=== PATIENT | male | born 1940 | race Caucasian/White ===

== ENCOUNTER 2021-09-23 01:45 | Inpatient (IN) | payer MEDICARE, OTHER ==
[~2021-09-23] VITALS: Ht 175.3 cm; Wt 76.2 kg
--- NOTE | 2021-09-23 02:55 | NUR ---
AFTER BEING TRIAGED, PATIENT WAS PLACED IN HALLWAY ON ROR [facility] TO WAIT FOR ROOM OPENING.
[2021-09-23 03:03] LABS: HEMATOCRIT 33.1 % (36.7-47.1); MEAN CORPUSCULAR VOLUME 90.4 fL (73.0-96.2); PLATELET COUNT (AUTO) 142 K/uL (152-348)
[2021-09-23] MEDS ORDERED: RIVA10TA PO (03:23)
[2021-09-23] MEDS ORDERED: AMLO-212 PO (03:23)
[2021-09-23] MEDS ORDERED: DONE10TA44 PO ×2 (03:23→17:14)
[2021-09-23] MEDS ORDERED: MAGN400O6 PO (03:23)
[2021-09-23] MEDS ORDERED: TAMS-3 PO (03:23)
[2021-09-23] MEDS ORDERED: ACET-2154 PO (03:23)
[2021-09-23] MEDS ORDERED: MEMA10TA56 PO (03:23)
[2021-09-23] MEDS ORDERED: DOCU100C36 PO (03:23)
[2021-09-23] MEDS ORDERED: SIMV-46 PO (03:23)
[2021-09-23] MEDS ORDERED: MULT-1188 PO (03:23)
[2021-09-23] MEDS ORDERED: DULO60CA45 PO (03:23)
[2021-09-23] MEDS ORDERED: METO-357 PO (03:23)
[2021-09-23] MEDS ORDERED: OXYB10TA30 PO (03:23)
[2021-09-23] MEDS ORDERED: CRAN425C6 PO (03:23)
[2021-09-23] MEDS ORDERED: FINA5TAB11 PO (03:23)
[2021-09-23 03:25] LABS: THYROID STIMULATING HORMONE 2.743 mIU/mL (0.358-3.740)
[2021-09-23 03:31] LABS: CARBON DIOXIDE 24 mmol/L (21-32); CHLORIDE 104 mmol/L (98-107); CREATININE 1.5 mg/dL (0.6-1.3); GLUCOSE 95 mg/dL (74-106); POTASSIUM 3.8 mmol/L (3.5-5.1); UREA NITROGEN, BLOOD 30 mg/dL (7-18)
[2021-09-23 03:33] LABS: ETHANOL < 3 MG/DL (0-0)
[2021-09-23 03:37] LABS: ACETAMINOPHEN < 2.0 ug/mL (10-30); ALANINE AMINOTRANSFERASE 27 U/L (16-63); ALKALINE PHOSPHATASE 63 U/L (50-136); ASPARTATE AMINOTRANSFERASE 57 U/L (15-37); BILIRUBIN,DIRECT 0.4 mg/dL (0.0-0.2); BILIRUBIN,TOTAL 1.5 mg/dL (0.2-1.0); CREATINE KINASE, TOTAL 844 U/L (39-308); TOTAL PROTEIN, SERUM 6.1 g/dL (6.4-8.2)
--- NOTE | 2021-09-23 04:22 | NUR ---
MEDICALLY CLEARED BY DR CASTELLANO.
[2021-09-23] MEDS ORDERED: MAGNESIUM HYDROXIDE 30 ML LIQUID UDC PO PRN (04:45)
[2021-09-23] MEDS ORDERED: TEMAZEPAM 7.5 MG CAPSULE PO PRN (04:45)
[2021-09-23] MEDS ORDERED: MAG HYDROX/AL HYDROX/SIMETH 30 ML LIQUID UDC PO PRN (04:45)
--- NOTE | 2021-09-23 04:45 | NUR ---
TRANSPORTED TO [facility] VIA [facility] WITH NO DISTRESS NOTED.
[2021-09-23 05:37] VITALS: BP 149/66
[2021-09-23] MEDS: BLOOD SUGAR DIAGNOSTIC 1 EACH STRIP VI ONE ×2 (05:42→06:42)
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
--- NOTE | 2021-09-23 06:58 | NUR ---
Pt is calmer, now. Blood sugar check done.
[2021-09-23] MEDS: LORAZEPAM 0.5 MG TABLET PO PRN ×2 (07:40→12:36)
--- NOTE | 2021-09-23 10:18 | NUR ---
MARISOL Initial Discharge Plan: Pt's current resident is [facility] [address], [place] [address] ([phone]). Per Cristel figueroa at [facility], pt is not accepted back upon discharge. MARISOL will work with pt, family and MD to ensure a safe and proper discharge plan for the pt.
--- NOTE | 2021-09-23 10:21 | NUR ---
SW Admit Source: Pt's current resident is [facility] [address], [place] [address] ([phone]). Per 5150 hold, clinician was contacted by Intake to evaluate SI with aggressive behavior at [facility]. Per Cristel figueroa at [facility], pt is not accepted back upon discharge. SW will work with pt, family and MD to ensure a safe and proper discharge plan for the pt.
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
--- NOTE | 2021-09-23 10:59 | NUR ---
GPS: Nursing Notes: Destructive Behavior to Others: Patient is awake and responding to his name, gets easily irritable when redirected, poor anger management, resistant with nursing care, unkempt appearance, disorganized, confused, forgetful, impaired judgment, loud and pressured speech at times, unable to formulate a viable plan for self care, continent of urine, redirected and reoriented during shift, continue to monitor for safety, continue with treatment plan.
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
[2021-09-23] MEDS: busPIRone 5 MG TABLET PO SCH ×2 (13:16→16:22)
[2021-09-23 15:41] VITALS: BP 125/59
[2021-09-23 16:01] LABS: HEMATOCRIT 34.7 % (36.7-47.1); MEAN CORPUSCULAR VOLUME 91.3 fL (73.0-96.2); PLATELET COUNT (AUTO) 154 K/uL (152-348)
[2021-09-23 16:29] LABS: BILIRUBIN,TOTAL 1.3 mg/dL (0.2-1.0); CREATININE 1.3 mg/dL (0.6-1.3); POTASSIUM 4.4 mmol/L (3.5-5.1); TOTAL PROTEIN, SERUM 6.2 g/dL (6.4-8.2)
[2021-09-23] MEDS ORDERED: MEMA10TA PO (17:14)
[2021-09-23 19:44] VITALS: BP 110/67
--- NOTE | 2021-09-24 03:35 | NUR ---
Received to care, isolating in his room, but pleasant and cooperative, upon approach. No aggressive behavior noted. PRN Restoril was given at 2045, along with a snack, and he went to sleep, soon afterwards. He has been sleeping well since then, except for a few trips to the bathroom. As of now, he remains asleep. No distress noted. Will continue to monitor closely.
[2021-09-24 07:30] VITALS: BP 148/57
[2021-09-24 07:52] LABS: CREATININE 1.3 mg/dL (0.6-1.3); POTASSIUM 3.9 mmol/L (3.5-5.1)
[2021-09-24] MEDS: OXYBUTYNIN XL 5 MG TABSR PO SCH (09:26)
[2021-09-24] MEDS: FINASTERIDE 5 MG TABLET PO SCH (09:26)
[2021-09-24] MEDS: DULOXETINE 20 MG CAPSULE.DR PO SCH (09:26)
[2021-09-24] MEDS: MULTIVITAMINS,THERAPEUTIC TABLET PO SCH (09:27)
[2021-09-24] MEDS: DOCUSATE SODIUM 100 MG CAPSULE PO SCH (09:27)
[2021-09-24] MEDS: busPIRone 5 MG TABLET PO SCH ×3 (09:27→17:54)
[2021-09-24] MEDS: AMLODIPINE 5 MG TABLET PO SCH (09:28)
[2021-09-24] MEDS: METOPROLOL SUCCINATE XL 50 MG TAB.SR.24H PO SCH (09:29)
[2021-09-24 16:00] VITALS: BP 128/60
--- NOTE | 2021-09-24 16:35 | NUR ---
Received patient sleeping in his room. A/O X 2 - 3 to person, place. Pt. affect is withdrawn, depressed, quiet, calm. Compliant with medications. Ambulates with walker. Self care. Continent. Emotional support provided. Fall and safety precautions implemented.
[2021-09-24] MEDS: RIVAROXABAN 15 MG TABLET PO SCH (17:55)
[2021-09-24 20:00] VITALS: BP 131/55
[2021-09-24] MEDS ORDERED: RIVAROXABAN 10 MG TABLET PO SCH ×2 (21:00)
[2021-09-24] MEDS ORDERED: ZOLPIDEM 5 MG TABLET PO ONE (21:00)
[2021-09-24] MEDS: SIMVASTATIN 20 MG TABLET PO SCH (21:55)
[2021-09-24] MEDS: TAMSULOSIN HCL 0.4 MG CAP.SR.24H PO SCH (21:55)
--- NOTE | 2021-09-25 07:16 | NUR ---
GPS/NSG Luisien wasted patient was asleep.
[2021-09-25 07:30] VITALS: BP 126/65
[2021-09-25] MEDS: OXYBUTYNIN XL 5 MG TABSR PO SCH (08:27)
[2021-09-25] MEDS: DULOXETINE 20 MG CAPSULE.DR PO SCH (08:27)
[2021-09-25] MEDS: DOCUSATE SODIUM 100 MG CAPSULE PO SCH (08:28)
[2021-09-25] MEDS: busPIRone 5 MG TABLET PO SCH ×3 (08:28→17:09)
[2021-09-25] MEDS: MULTIVITAMINS,THERAPEUTIC TABLET PO SCH (08:28)
[2021-09-25] MEDS: FINASTERIDE 5 MG TABLET PO SCH (08:29)
[2021-09-25] MEDS: AMLODIPINE 5 MG TABLET PO SCH (08:30)
[2021-09-25] MEDS: METOPROLOL SUCCINATE XL 50 MG TAB.SR.24H PO SCH (08:30)
--- NOTE | 2021-09-25 15:56 | NUR ---
Received patient sleeping in his room. A/O X 2 to person, place. Pt. is calm, cooperative, isolative, withdrawn. Compliant with medications. Ambulates with walker, unsteady gait. Requires minimal assistance with ADL. Denies SI/HI AH/VH. Active listening provided. Fall and safety precautions implemented.
[2021-09-25 16:00] VITALS: BP 121/45
[2021-09-25] MEDS: RIVAROXABAN 15 MG TABLET PO SCH (17:59)
[2021-09-25 20:00] VITALS: BP 162/80
[2021-09-25] MEDS: SIMVASTATIN 20 MG TABLET PO SCH (20:38)
[2021-09-25] MEDS: TAMSULOSIN HCL 0.4 MG CAP.SR.24H PO SCH (20:38)
[2021-09-25] MEDS: QUETIAPINE FUMARATE 25 MG TABLET PO SCH ×2 (20:38→21:07)
[2021-09-25] MEDS: ZOLPIDEM 5 MG TABLET PO PRN (23:18)
[2021-09-25 23:33] LABS: *BILIRUBIN,URIN NEGATIVE (NEGATIVE); *BLOOD, URINE 2+ (NEGATIVE); *CLARITY,URINE TURBID (CLEAR); *COLOR,URINE YELLOW (YELLOW); *KETONES,URINE NEGATIVE (NEGATIVE); *UROBILINOGEN,URINE 0.2 E.U./dl (NORMAL); LEUKOCYTE ESTERASE ,URINE 3+ (NEGATIVE); NITRITE, URINE NEGATIVE (NEGATIVE); UGLUCOSE NEGATIVE (NEGATIVE)
[2021-09-25 23:44] LABS: BACTERIA,URINE FEW /HPF (NONE SEEN); RBC,URINE 20-50 /HPF (0-3); SQUAMOUS EPITHELIAL CELL,UR FEW /HPF (NONE SEEN); WBC,URINE TNTC /HPF (0-3)
--- NOTE | 2021-09-26 04:36 | NUR ---
GPS NOTE: Received patient at the start of the shift, confused and ambulating without using his walker.As the night proceeded it is noted that the patient was up and out of bed literally every 30 minutes trying to void. Each time the output was very minimal. 20 to 50 cc at a time. A urine sample was sent to the lab and indicated a urine infection. The patient had a West catheter at the previous hospital as well as the SNF he resides in. The catheter was removed the same day as the patient was admitted to this Mental Health Unit. This patient is combative at night and needs frequent reorientation, reassurance and assist to the bathroom every 15 to 30 minutes. Plan to notify the Doctor in the AM and bladder scan the patient prior to that .Safety Stratiges in place .
--- NOTE | 2021-09-26 05:45 | NUR ---
Bladder scan was used and large amount of urine shown in the bladder. Dr. Edouard notified and order receive to straight cath patient. This travel writer did in and out catheter. Patient tolerated the procedure well. Total urine output was 550 ml. Continuing to monitor patient for retention. Doctor was made aware of the UA results.
[2021-09-26 07:30] VITALS: BP 137/52
[2021-09-26] MEDS: FINASTERIDE 5 MG TABLET PO SCH (08:24)
[2021-09-26] MEDS: DOCUSATE SODIUM 100 MG CAPSULE PO SCH (08:24)
[2021-09-26] MEDS: MULTIVITAMINS,THERAPEUTIC TABLET PO SCH (08:24)
[2021-09-26] MEDS: AMLODIPINE 5 MG TABLET PO SCH (08:24)
[2021-09-26] MEDS: busPIRone 5 MG TABLET PO SCH ×3 (08:24→16:20)
[2021-09-26] MEDS: OXYBUTYNIN XL 5 MG TABSR PO SCH (08:24)
[2021-09-26] MEDS: METOPROLOL SUCCINATE XL 50 MG TAB.SR.24H PO SCH (08:25)
[2021-09-26] MEDS ORDERED: CEphaleXIN 500 MG CAPSULE PO ONE (15:27)
[2021-09-26 16:44] VITALS: BP 131/81
[2021-09-26] MEDS: RIVAROXABAN 15 MG TABLET PO SCH (17:00)
[2021-09-26] MEDS: CEphaleXIN 500 MG CAPSULE PO SCH (20:13)
[2021-09-26] MEDS: PHENAZOPYRIDINE HCL 100 MG TABLET PO SCH (20:13)
[2021-09-26] MEDS: TAMSULOSIN HCL 0.4 MG CAP.SR.24H PO SCH (20:14)
[2021-09-26] MEDS: QUETIAPINE FUMARATE 25 MG TABLET PO SCH (20:14)
[2021-09-26] MEDS: SIMVASTATIN 20 MG TABLET PO SCH (20:15)
[2021-09-26 20:42] VITALS: BP 112/46
[2021-09-26] MEDS: ACETAMINOPHEN 325 MG TABLET PO PRN (23:27)
[2021-09-26] MEDS: ZOLPIDEM 5 MG TABLET PO PRN (23:28)
[2021-09-27 07:28] VITALS: BP 109/44
[2021-09-27] MEDS: MULTIVITAMINS,THERAPEUTIC TABLET PO SCH (08:12)
[2021-09-27] MEDS: busPIRone 5 MG TABLET PO SCH ×3 (08:12→16:02)
[2021-09-27] MEDS: CEphaleXIN 500 MG CAPSULE PO SCH ×2 (08:12→20:31)
[2021-09-27] MEDS: DOCUSATE SODIUM 100 MG CAPSULE PO SCH (08:12)
[2021-09-27] MEDS: OXYBUTYNIN XL 5 MG TABSR PO SCH (08:12)
[2021-09-27] MEDS: FINASTERIDE 5 MG TABLET PO SCH (08:12)
[2021-09-27] MEDS: PHENAZOPYRIDINE HCL 100 MG TABLET PO SCH ×2 (08:12→20:31)
[2021-09-27] MEDS: METOPROLOL SUCCINATE XL 50 MG TAB.SR.24H PO SCH (08:13)
[2021-09-27] MEDS: AMLODIPINE 5 MG TABLET PO SCH (08:13)
[2021-09-27 16:43] VITALS: BP 125/62
[2021-09-27] MEDS: RIVAROXABAN 15 MG TABLET PO SCH (17:09)
[2021-09-27 20:00] VITALS: BP 125/70
[2021-09-27] MEDS: ATORVASTATIN 10 MG TABLET PO SCH (20:30)
[2021-09-27] MEDS: QUETIAPINE FUMARATE 25 MG TABLET PO SCH (20:30)
[2021-09-27] MEDS: TAMSULOSIN HCL 0.4 MG CAP.SR.24H PO SCH (20:31)
[2021-09-28 07:30] VITALS: BP 150/82
[2021-09-28] MEDS: OXYBUTYNIN XL 5 MG TABSR PO SCH (08:03)
[2021-09-28] MEDS: DOCUSATE SODIUM 100 MG CAPSULE PO SCH (08:03)
[2021-09-28] MEDS: busPIRone 5 MG TABLET PO SCH ×3 (08:03→16:27)
[2021-09-28] MEDS: PHENAZOPYRIDINE HCL 100 MG TABLET PO SCH (08:03)
[2021-09-28] MEDS: CEphaleXIN 500 MG CAPSULE PO SCH ×2 (08:03→20:22)
[2021-09-28] MEDS: FINASTERIDE 5 MG TABLET PO SCH (08:03)
[2021-09-28] MEDS: MULTIVITAMINS,THERAPEUTIC TABLET PO SCH (08:03)
[2021-09-28] MEDS: METOPROLOL SUCCINATE XL 50 MG TAB.SR.24H PO SCH (08:08)
[2021-09-28] MEDS: AMLODIPINE 5 MG TABLET PO SCH (08:08)
[2021-09-28 08:29] LABS: HEMATOCRIT 34.6 % (36.7-47.1); MEAN CORPUSCULAR HEMOGLOBIN 30.9 uug (23.8-33.4); MEAN CORPUSCULAR VOLUME 92.2 fL (73.0-96.2); PLATELET COUNT (AUTO) 185 K/uL (152-348)
[2021-09-28 08:41] LABS: ALANINE AMINOTRANSFERASE 21 U/L (16-63); ALKALINE PHOSPHATASE 62 U/L (50-136); ASPARTATE AMINOTRANSFERASE 19 U/L (15-37); CARBON DIOXIDE 27 mmol/L (21-32); CHLORIDE 104 mmol/L (98-107); CREATINE KINASE, TOTAL 46 U/L (39-308); CREATININE 1.4 mg/dL (0.6-1.3); GLUCOSE 95 mg/dL (74-106); MAGNESIUM 1.9 mg/dL (1.8-2.4); PHOSPHOROUS 2.7 mg/dL (2.5-4.9); POTASSIUM 4.3 mmol/L (3.5-5.1); TOTAL PROTEIN, SERUM 5.9 g/dL (6.4-8.2); UREA NITROGEN, BLOOD 26 mg/dL (7-18)
[2021-09-28 16:00] VITALS: BP 121/56
[2021-09-28] MEDS: RIVAROXABAN 15 MG TABLET PO SCH (18:12)
[2021-09-28 20:00] VITALS: BP 137/61
[2021-09-28] MEDS: ACETAMINOPHEN 325 MG TABLET PO PRN (20:21)
[2021-09-28] MEDS: QUETIAPINE FUMARATE 25 MG TABLET PO SCH (20:21)
[2021-09-28] MEDS: ATORVASTATIN 10 MG TABLET PO SCH (20:22)
[2021-09-28] MEDS: DONEPEZIL 5 MG TABLET PO SCH (20:22)
[2021-09-28] MEDS: TAMSULOSIN HCL 0.4 MG CAP.SR.24H PO SCH (20:22)
[2021-09-28] MEDS: ZOLPIDEM 5 MG TABLET PO PRN (22:33)
[2021-09-29 07:37] VITALS: BP 96/52
[2021-09-29] MEDS: busPIRone 5 MG TABLET PO SCH ×3 (08:59→17:00)
[2021-09-29] MEDS: DOCUSATE SODIUM 100 MG CAPSULE PO SCH (09:00)
[2021-09-29] MEDS: CEphaleXIN 500 MG CAPSULE PO SCH ×2 (09:00→20:13)
[2021-09-29] MEDS: OXYBUTYNIN XL 5 MG TABSR PO SCH (09:00)
[2021-09-29] MEDS: METOPROLOL SUCCINATE XL 50 MG TAB.SR.24H PO SCH (09:00)
[2021-09-29] MEDS: AMLODIPINE 5 MG TABLET PO SCH (09:00)
[2021-09-29] MEDS: FINASTERIDE 5 MG TABLET PO SCH (09:00)
[2021-09-29] MEDS: MULTIVITAMINS,THERAPEUTIC TABLET PO SCH (09:00)
--- NOTE | 2021-09-29 09:09 | NUR ---
Patient BP is 96/52, Norvasc 5 mg and Metoprolol 50 mg not given.
--- NOTE | 2021-09-29 15:04 | NUR ---
Received patient sleeping in his room. Pt. is calm, cooperative, appropriate, withdrawn, depressed, isolative most of the time. Compliant with medications. Ambulates with walker. Self care. Emotional support provided. Fall and safety precautions implemented.
[2021-09-29 16:30] VITALS: BP 105/46
[2021-09-29] MEDS: RIVAROXABAN 15 MG TABLET PO SCH (17:05)
[2021-09-29 20:00] VITALS: BP 130/67
[2021-09-29] MEDS: TAMSULOSIN HCL 0.4 MG CAP.SR.24H PO SCH (20:13)
[2021-09-29] MEDS: DONEPEZIL 5 MG TABLET PO SCH (20:13)
[2021-09-29] MEDS: QUETIAPINE FUMARATE 25 MG TABLET PO SCH (20:13)
[2021-09-29] MEDS: TRAZODONE 50 MG TABLET PO SCH (20:13)
[2021-09-29] MEDS: ATORVASTATIN 10 MG TABLET PO SCH (20:13)
[2021-09-30 08:00] VITALS: BP 108/78
[2021-09-30] MEDS: CEphaleXIN 500 MG CAPSULE PO SCH ×2 (08:01→22:40)
[2021-09-30] MEDS: DOCUSATE SODIUM 100 MG CAPSULE PO SCH (08:01)
[2021-09-30] MEDS: FINASTERIDE 5 MG TABLET PO SCH (08:01)
[2021-09-30] MEDS: AMLODIPINE 5 MG TABLET PO SCH (08:03)
[2021-09-30] MEDS: METOPROLOL SUCCINATE XL 50 MG TAB.SR.24H PO SCH (08:04)
[2021-09-30] MEDS: MULTIVITAMINS,THERAPEUTIC TABLET PO SCH (08:05)
[2021-09-30] MEDS: OXYBUTYNIN XL 5 MG TABSR PO SCH (08:05)
[2021-09-30] MEDS: busPIRone 5 MG TABLET PO SCH ×3 (08:05→17:21)
[2021-09-30 08:13] LABS: ALANINE AMINOTRANSFERASE 17 U/L (16-63); ALKALINE PHOSPHATASE 55 U/L (50-136); ASPARTATE AMINOTRANSFERASE 14 U/L (15-37); BILIRUBIN,TOTAL 0.7 mg/dL (0.2-1.0); CARBON DIOXIDE 26 mmol/L (21-32); CHLORIDE 106 mmol/L (98-107); CREATININE 1.4 mg/dL (0.6-1.3); GLUCOSE 96 mg/dL (74-106); POTASSIUM 4.1 mmol/L (3.5-5.1); TOTAL PROTEIN, SERUM 5.5 g/dL (6.4-8.2); UREA NITROGEN, BLOOD 33 mg/dL (7-18)
--- NOTE | 2021-09-30 08:40 | NUR ---
GPS: PT WAS NOT GIVEN METOPROLOL AND AMLODIPINE, PT WITH DECREASED BLOOD PRESSURE. PT COMPLIANT WITH MEDS AND CARE. DENIES ANY PAIN OR DISCOMFORT.
--- NOTE | 2021-09-30 10:42 | NUR ---
SW Contact Note: Pt received a voicemail from Bret ([phone]) from the [place] office to discuss pt's current status and SW returned the call and left a voicemail for a call back.
[2021-09-30 17:05] VITALS: BP 115/81
[2021-09-30] MEDS: RIVAROXABAN 15 MG TABLET PO SCH (17:22)
[2021-09-30 20:07] VITALS: BP 104/50
[2021-09-30] MEDS: TRAZODONE 50 MG TABLET PO SCH (22:40)
[2021-09-30] MEDS: QUETIAPINE FUMARATE 25 MG TABLET PO SCH (22:41)
[2021-09-30] MEDS: ATORVASTATIN 10 MG TABLET PO SCH (22:41)
[2021-09-30] MEDS: DONEPEZIL 5 MG TABLET PO SCH (22:41)
[2021-09-30] MEDS: TAMSULOSIN HCL 0.4 MG CAP.SR.24H PO SCH (22:41)
[2021-10-01 07:30] VITALS: BP 101/47
[2021-10-01] MEDS: OXYBUTYNIN XL 5 MG TABSR PO SCH (08:34)
[2021-10-01] MEDS: MULTIVITAMINS,THERAPEUTIC TABLET PO SCH (08:34)
[2021-10-01] MEDS: busPIRone 5 MG TABLET PO SCH ×3 (08:34→17:08)
[2021-10-01] MEDS: CEphaleXIN 500 MG CAPSULE PO SCH ×2 (08:34→21:51)
[2021-10-01] MEDS: AMLODIPINE 5 MG TABLET PO SCH (08:35)
[2021-10-01] MEDS: METOPROLOL SUCCINATE XL 50 MG TAB.SR.24H PO SCH (08:35)
[2021-10-01] MEDS: FINASTERIDE 5 MG TABLET PO SCH (08:36)
[2021-10-01] MEDS: DOCUSATE SODIUM 100 MG CAPSULE PO SCH (08:36)
--- NOTE | 2021-10-01 09:13 | NUR ---
Social Work Coordination of Care: Personalized Living Assistant faxed patient's referral packet including: History and Physical, Consultation, Progress Notes, Medication List and Labs to the following facilities for review and possible usp placement: [facility] [phone] [address] [place] [address] and spoke with Janeen at the facility.
--- NOTE | 2021-10-01 09:32 | NUR ---
GPS: PT ALERT AND VERBALLY RESPONSIVE. PT ISOLATIVE, IN ROOM. ENCOURAGED TO PARTICIPATE WITH GFROUP THERAPY. PT NOTED WITH RIGHT HAND EDEMA +3. ENCOURAGED PT TO ELEVATE HIS HAND ABOVE HEART LEVEL. WILL NOTIFY MD FOR EVALUATION AND WOUND NURSE ON RIGHT HAND OPEN WOUND. PT FEELS LITTLE DISCOMFORT ON THE SITE.
--- NOTE | 2021-10-01 11:36 | NUR ---
GPS: DR GUERRA CAME TO SEE PT WITH RIGHT HAND SWOLLEN. MD ORDERED DUPLEX DOPPLER ON RIGHT HAND. PER PT, A SURGERY WAS DONE TO HIS RIGHT HAND. PT MADE AWARE.
--- NOTE | 2021-10-01 14:14 | NUR ---
GPS: ULTRASOUND OF UPPER EXTREMITY VENOUS IMPRESSION IS NO SONOGRAPHIC EVIDENCE FOR VENOUS THROMBOSIS. PT MADE AWARE. WILL ENCOURAGE PT TO ELEVATE SITE ABOVE HEART LEVEL.
[2021-10-01 16:00] VITALS: BP 113/54
[2021-10-01] MEDS: RIVAROXABAN 15 MG TABLET PO SCH (17:30)
--- NOTE | 2021-10-01 17:52 | NUR ---
GPS: PT HAD A NAP THIS AFTERNOON. WENT TO NURSES STATION STATING " DID I MISS BREAKFAST?" RE-ORIENTED TO TIME. PT ISOLATIVE, WITHDRAWN. ANSWERS BACK APPROPRIATELY. DENIES ANY PAIN OR DISCOMFORT AT THIS TIME. PT SEEN BY CHARLIE AND DR CASTELLANOS. COMPLIANT WITH MEDS AND COOPERATIVE WITH CARE. WILL WAIT FOR WOUND NURSE CONSULT.
[2021-10-01 20:00] VITALS: BP 135/65
[2021-10-01] MEDS: TAMSULOSIN HCL 0.4 MG CAP.SR.24H PO SCH (21:51)
[2021-10-01] MEDS: TRAZODONE 50 MG TABLET PO SCH (21:51)
[2021-10-01] MEDS: DONEPEZIL 5 MG TABLET PO SCH (21:51)
[2021-10-01] MEDS: QUETIAPINE FUMARATE 25 MG TABLET PO SCH (21:51)
[2021-10-01] MEDS: ATORVASTATIN 10 MG TABLET PO SCH (21:52)
--- NOTE | 2021-10-02 04:23 | NUR ---
MARISOL Conservator Contact Update: MARISOL contacted [facility] office and spoke with pt's conservator Bret ([phone]) and notified Bret that pt will be discharging to [facility] on 10/03/21 due to [facility] ([phone]) denying their acceptance for the pt. Bret is aware and agreeable for the discharge plan.
[2021-10-02 08:05] VITALS: BP 128/69
[2021-10-02] MEDS: MULTIVITAMINS,THERAPEUTIC TABLET PO SCH (08:36)
[2021-10-02] MEDS: FINASTERIDE 5 MG TABLET PO SCH (08:36)
[2021-10-02] MEDS: OXYBUTYNIN XL 5 MG TABSR PO SCH (08:36)
[2021-10-02] MEDS: METOPROLOL SUCCINATE XL 50 MG TAB.SR.24H PO SCH (08:37)
[2021-10-02] MEDS: busPIRone 5 MG TABLET PO SCH ×3 (08:37→16:58)
[2021-10-02] MEDS: AMLODIPINE 5 MG TABLET PO SCH (08:37)
[2021-10-02] MEDS: CEphaleXIN 500 MG CAPSULE PO SCH (08:38)
[2021-10-02] MEDS: DOCUSATE SODIUM 100 MG CAPSULE PO SCH (08:38)
--- NOTE | 2021-10-02 09:16 | NUR ---
MARISOL Conservator Contact: MARISOL contacted [facility] office and spoke with pt's probate conservator, Bret ([phone]) and notified him with pt's discharge details on Friday, October 02, 2020 to [facility] ([phone]). Bret is aware and agreeable with the pt's discharge plan.
--- NOTE | 2021-10-02 09:35 | NUR ---
GPS: PT SEEN BY DR MAYELIN TRIANA RE: SWOLLEN RIGHT UPPER EXTREMITY. UPON ASSESSMENT, PT ENABLE TO MOVE THE DIGITS WITH NO PAIN OR DISCOMFORT. NO ORDER GIVEN AT THIS TIME. WILL WAIT FOR THE WOUND CONSULT NURSE TO ASSESS ON THE OPEN WOUND ON RIGHT HAND.
[2021-10-02] MEDS: RIVAROXABAN 15 MG TABLET PO SCH (17:19)
--- NOTE | 2021-10-02 18:29 | NUR ---
Gps/Showroom Sales Assistant- Stayed in bed most of the time, encouraged attending his group therapy, disorganized, needed redirections.Right arm swollen seen by Daniel Fair DNP waiting to be see by Wound Care Nurse. Some scabs to his hands also noted..
[2021-10-02 19:41] VITALS: BP 118/62
[2021-10-02] MEDS: ATORVASTATIN 10 MG TABLET PO SCH (20:01)
[2021-10-02] MEDS: QUETIAPINE FUMARATE 25 MG TABLET PO SCH (20:01)
[2021-10-02] MEDS: TRAZODONE 50 MG TABLET PO SCH (20:01)
[2021-10-02] MEDS: DONEPEZIL 5 MG TABLET PO SCH (20:01)
[2021-10-02] MEDS: TAMSULOSIN HCL 0.4 MG CAP.SR.24H PO SCH (20:01)
[2021-10-03] MEDS: ZOLPIDEM 5 MG TABLET PO PRN ×2 (03:03→21:19)
--- NOTE | 2021-10-03 03:24 | NUR ---
Received the patient at the start of the shift, wondering in the patterson, confused and disoriented. This technical report writer was able to redirect and reorient the patient at different times when needed. During the night ,this patient was up and down. No aggressive behavior noted, and safety stratiges are in place.
[2021-10-03 07:14] LABS: HEMATOCRIT 30.8 % (36.7-47.1); MEAN CORPUSCULAR HEMOGLOBIN 30.9 uug (23.8-33.4); MEAN CORPUSCULAR VOLUME 90.9 fL (73.0-96.2); PLATELET COUNT (AUTO) 197 K/uL (152-348)
[2021-10-03 07:29] LABS: CREATININE 1.2 mg/dL (0.6-1.3); PHOSPHOROUS 2.4 mg/dL (2.5-4.9); POTASSIUM 4.3 mmol/L (3.5-5.1)
[2021-10-03 07:30] VITALS: BP 132/57
[2021-10-03] MEDS: busPIRone 5 MG TABLET PO SCH ×3 (08:53→16:08)
[2021-10-03] MEDS: OXCARBAZEPINE 150 MG TABLET PO SCH ×3 (08:53→16:08)
[2021-10-03] MEDS: MULTIVITAMINS,THERAPEUTIC TABLET PO SCH (08:53)
[2021-10-03] MEDS: DOCUSATE SODIUM 100 MG CAPSULE PO SCH (08:53)
[2021-10-03] MEDS: OXYBUTYNIN XL 5 MG TABSR PO SCH (08:54)
[2021-10-03] MEDS: FINASTERIDE 5 MG TABLET PO SCH (08:54)
[2021-10-03] MEDS: AMLODIPINE 5 MG TABLET PO SCH (08:56)
[2021-10-03] MEDS: METOPROLOL SUCCINATE XL 50 MG TAB.SR.24H PO SCH (08:57)
--- NOTE | 2021-10-03 09:42 | NUR ---
SW Discharge Update: Dr. Sanchez notified SW to postpone pt's discharge to [facility] ([phone]) due to medication change. SW notified [facility] that pt will not be discharged today.
--- NOTE | 2021-10-03 12:43 | NUR ---
WOUND CARE CONSULT: PT PRESENT WITH CRUSTED WOUND TO WEB OF RT HAND BETWEEN THUMB AND INDEX FINGER, PRESENT ON ADMISSION PER CHART. SWELLING AND TENDERNESS NOTED TO HAND. SURGICAL CONSULT CALLED TO DR ARELLANO. NO DRAINAGE NOTED AT THIS TIME. IN AGREEMENT WITH PLAN OF CARE.
--- NOTE | 2021-10-03 13:00 | NUR ---
Gps/Dance Director- geoscientist Jacquie was in to check right arm , scabs , planned for Plastic Surgeon consult as stated .
[2021-10-03] MEDS ORDERED: NEUTRA PHOS PACKET PO ONE (16:00)
[2021-10-03] MEDS: RIVAROXABAN 15 MG TABLET PO SCH (17:05)
[2021-10-03 17:08] VITALS: BP 137/68
[2021-10-03] MEDS: TRAZODONE 50 MG TABLET PO SCH (20:23)
[2021-10-03] MEDS: TAMSULOSIN HCL 0.4 MG CAP.SR.24H PO SCH (20:25)
[2021-10-03] MEDS: DONEPEZIL 5 MG TABLET PO SCH (20:25)
[2021-10-03] MEDS: ATORVASTATIN 10 MG TABLET PO SCH (20:25)
[2021-10-03] MEDS: QUETIAPINE FUMARATE 25 MG TABLET PO SCH (20:25)
[2021-10-03 20:30] VITALS: BP 102/46
--- NOTE | 2021-10-04 05:55 | NUR ---
Patient was up and down during the night to urinate frequently. Bed alarm on and activate. Patient noted to be unsteady when getting out of bed. Safety stratiges are in place to prevent injury. Steward/Stewardess Night noticed that the patient had a distended bladder and had minimal urine output with the multiple trips to the bathroom. In and out cath done per previous order, patient tolerated well. Output of urine at that time was 700ml. Sterile technique used. This policy writer will endorse this information to the on coming nurse. The patient continues to be confused and has poor information retention. Continuing to reorient the patient to the situation and redirect the patient when needed. No aggressive or combative behavior noted during the last 2 night shifts.
[2021-10-04] MEDS: FINASTERIDE 5 MG TABLET PO SCH (08:20)
[2021-10-04] MEDS: OXCARBAZEPINE 150 MG TABLET PO SCH ×3 (08:21→16:14)
[2021-10-04] MEDS: busPIRone 5 MG TABLET PO SCH ×3 (08:21→16:14)
[2021-10-04] MEDS: MULTIVITAMINS,THERAPEUTIC TABLET PO SCH (08:21)
[2021-10-04] MEDS: DOCUSATE SODIUM 100 MG CAPSULE PO SCH (08:21)
[2021-10-04] MEDS: METOPROLOL SUCCINATE XL 50 MG TAB.SR.24H PO SCH (08:21)
[2021-10-04] MEDS: AMLODIPINE 5 MG TABLET PO SCH (08:21)
[2021-10-04] MEDS: OXYBUTYNIN XL 5 MG TABSR PO SCH (08:21)
[2021-10-04 08:38] VITALS: BP 116/72
[2021-10-04 16:02] VITALS: BP 136/63
[2021-10-04] MEDS: RIVAROXABAN 15 MG TABLET PO SCH (17:03)
[2021-10-04 19:59] VITALS: BP 136/69
[2021-10-04] MEDS: TAMSULOSIN HCL 0.4 MG CAP.SR.24H PO SCH (20:17)
[2021-10-04] MEDS: DONEPEZIL 5 MG TABLET PO SCH (20:17)
[2021-10-04] MEDS: TRAZODONE 50 MG TABLET PO SCH (20:17)
[2021-10-04] MEDS: ATORVASTATIN 10 MG TABLET PO SCH (20:18)
[2021-10-04] MEDS: QUETIAPINE FUMARATE 25 MG TABLET PO SCH (20:18)
--- NOTE | 2021-10-05 05:19 | NUR ---
Received patient in bed ,at the start of the shift. This investment underwriter encouraged patient to get up and out of bed and come to the day room for a snack ,seeing as it was only 730 PM. The patient remains very forgetful but easily redirectable and calm. No aggressive or combative behavior noted. This patient did get up during the night to void, but fewer times that the previous night shifts. Bed alarm on and assistance provided to the bathroom to ensure patients safety. Per the Psychiatrist, this patient will most likely be discharge on Wednesday.Continuing with the plan of care.
[2021-10-05 07:33] VITALS: BP 121/65
[2021-10-05] MEDS: FINASTERIDE 5 MG TABLET PO SCH (08:59)
[2021-10-05] MEDS: DOCUSATE SODIUM 100 MG CAPSULE PO SCH (08:59)
[2021-10-05] MEDS: OXYBUTYNIN XL 5 MG TABSR PO SCH (08:59)
[2021-10-05] MEDS: OXCARBAZEPINE 150 MG TABLET PO SCH ×3 (08:59→16:47)
[2021-10-05] MEDS: METOPROLOL SUCCINATE XL 50 MG TAB.SR.24H PO SCH (08:59)
[2021-10-05] MEDS: busPIRone 5 MG TABLET PO SCH ×3 (08:59→16:47)
[2021-10-05] MEDS: AMLODIPINE 5 MG TABLET PO SCH (09:00)
[2021-10-05] MEDS: MULTIVITAMINS,THERAPEUTIC TABLET PO SCH (09:00)
--- NOTE | 2021-10-05 09:43 | NUR ---
GPS: PT RECEIVED ON BED AWAKE, ALERT, ISOLATIVE. PT DENIES ANY PAIN OR DISCOMFORT ON RIGHT UPPER EXTREMITY. TREATMENT DONE TO RIGHT HAND OPEN WOUND, CLEANSED WITH WOUND CLEANSER, APPLY BETADINE. PT NOT AGGRESSIVE.
[2021-10-05 16:42] VITALS: BP 112/70
[2021-10-05] MEDS: RIVAROXABAN 15 MG TABLET PO SCH (18:26)
[2021-10-05 19:38] VITALS: BP 116/64
[2021-10-05] MEDS: DONEPEZIL 5 MG TABLET PO SCH (21:03)
[2021-10-05] MEDS: TRAZODONE 50 MG TABLET PO SCH (21:03)
[2021-10-05] MEDS: ATORVASTATIN 10 MG TABLET PO SCH (21:03)
[2021-10-05] MEDS: TAMSULOSIN HCL 0.4 MG CAP.SR.24H PO SCH (21:03)
[2021-10-05] MEDS: QUETIAPINE FUMARATE 25 MG TABLET PO SCH (21:03)
[2021-10-06] MEDS: ACETAMINOPHEN 325 MG TABLET PO PRN (01:37)
--- NOTE | 2021-10-06 05:00 | NUR ---
MARISOL Conservator Contact: MARISOL contacted public guardian's office and spoke with probate conservator, Bret ([phone]) and notified him regarding pt's updated discharge plan on 10/07/21 to [facility] [address], [facility] [address] ([phone]). Bret was agreeable with he updated discharge plan.
[2021-10-06 08:00] VITALS: BP 149/68
[2021-10-06] MEDS: FINASTERIDE 5 MG TABLET PO SCH (08:36)
[2021-10-06] MEDS: OXCARBAZEPINE 150 MG TABLET PO SCH ×3 (08:36→18:02)
[2021-10-06] MEDS: METOPROLOL SUCCINATE XL 50 MG TAB.SR.24H PO SCH (08:36)
[2021-10-06] MEDS: AMLODIPINE 5 MG TABLET PO SCH (08:36)
[2021-10-06] MEDS: OXYBUTYNIN XL 5 MG TABSR PO SCH (08:37)
[2021-10-06] MEDS: MULTIVITAMINS,THERAPEUTIC TABLET PO SCH (08:37)
[2021-10-06] MEDS: DOCUSATE SODIUM 100 MG CAPSULE PO SCH (08:37)
[2021-10-06] MEDS: busPIRone 5 MG TABLET PO SCH ×3 (08:37→18:02)
--- NOTE | 2021-10-06 09:56 | NUR ---
GPS: TREATMENT DONE TO RIGHT HAND WOUND. PT DENIES ANY PAIN AND DISCOMFORT. ALERT AND VERBALLY RESPONSIVE. NO AGITATION. ISOLATIVE AND LIKES TO STAY IN HIS ROOM, SLEEPING.
[2021-10-06 16:52] VITALS: BP 136/52
[2021-10-06] MEDS: RIVAROXABAN 15 MG TABLET PO SCH (18:04)
--- NOTE | 2021-10-06 18:51 | NUR ---
GPS: BHUPINDER TEST DONE THIS PM FOR ANTICIPATED DISCHARGE TO A FACILITY TOMORROW. PT DENIES ANY PAIN OR DISCOMFORT. NO AGITATION NOTED. COOPERATIVE WITH CARE AND COMPLIANT WITH MEDS. ALERT/ORIENTED X 3.
--- NOTE | 2021-10-06 19:05 | NUR ---
GPS: RECEIVED COVID TEST RESULT IS NEGATIVE.
[2021-10-06 20:06] VITALS: BP 142/56
[2021-10-06] MEDS: ATORVASTATIN 10 MG TABLET PO SCH (20:53)
[2021-10-06] MEDS: TRAZODONE 50 MG TABLET PO SCH (20:53)
[2021-10-06] MEDS: TAMSULOSIN HCL 0.4 MG CAP.SR.24H PO SCH (20:53)
[2021-10-06] MEDS: DONEPEZIL 5 MG TABLET PO SCH (20:54)
[2021-10-06] MEDS ORDERED: QUETIAPINE FUMARATE 25 MG TABLET PO SCH (21:00)
--- NOTE | 2021-10-07 02:54 | NUR ---
Received to care, awake in bed, pleasant upon approach. Compliant with medications. Ate a bedtime snack, and took fluids at his bedside. He went to sleep afterwards, and has been up to the bathroom a few times, but has been sleeping well. No distress noted. Remains calm and compliant. Will continue to monitor closely, for safety.
--- NOTE | 2021-10-07 08:45 | NUR ---
recd patient a/o in room in bed in distress without compliants. patient right hand still swollen and movable no c/o pain voiced. oral intake qs . patient able to go to bathroom independently slow gait. assisted as need .
[2021-10-07] MEDS: busPIRone 5 MG TABLET PO SCH ×2 (09:47→13:07)
[2021-10-07] MEDS: OXYBUTYNIN XL 5 MG TABSR PO SCH (09:47)
[2021-10-07] MEDS: OXCARBAZEPINE 150 MG TABLET PO SCH ×2 (09:47→13:06)
[2021-10-07] MEDS: FINASTERIDE 5 MG TABLET PO SCH (09:47)
[2021-10-07] MEDS: METOPROLOL SUCCINATE XL 50 MG TAB.SR.24H PO SCH (09:47)
[2021-10-07] MEDS: MULTIVITAMINS,THERAPEUTIC TABLET PO SCH (09:47)
[2021-10-07] MEDS: DOCUSATE SODIUM 100 MG CAPSULE PO SCH (09:47)
[2021-10-07 09:48] VITALS: BP 146/67
[2021-10-07] MEDS: AMLODIPINE 5 MG TABLET PO SCH (09:48)
--- NOTE | 2021-10-07 10:24 | NUR ---
GPS: PT RECEIVED TODAY ON BED ISOLATIVE. ALERT AND VERBALLY RESPONSIVE. AWARE THAT HE WILL BE DISCHARGE TODAY TO [facility]. PT COVID TEST NEGATIVE YESTERDAY. PT DENIES ANY PAIN OR DISCOMFORT. COOPERATIVE WITH CARE AND COMPLIANT WITH MEDS.
--- NOTE | 2021-10-07 12:30 | NUR ---
Called report to RON roe at [facility] pt to be picked up at 1300 via Ambulance; .
--- NOTE | 2021-10-07 13:30 | NUR ---
GPS: PT DISCHARGE FROM HOSPITAL. PT COOPERATIVE. UNABLE TO SIGN DOCUMENTS. PT DENIES ANY PAIN OR DISCOMFORT. [facility].
--- NOTE | 2021-10-07 13:30 | NUR ---
PATIENT PICKED UP BY AMBULANCE IN NO DISTRESS AND LEFT WITH ALL BELONGINGS AWARE OF TRANSFER AND conservetor aware by technical services specialist.
== END 2021-10-07 13:53 | DRG 885 ==
LOC: ER 01:49 → GPS 04:33
PROVIDERS: ADMIT Psychiatry & Neurology Psychosomatic Medicine; ATTEND Internal Medicine
DX: F29 Unspecified psychosis not due to a substance or known physiological condition (principal); E43 Unspecified severe protein-calorie malnutrition; N17.0 Acute kidney failure with tubular necrosis; N18.30 Chronic kidney disease, stage 3 unspecified; F02.81 Dementia in other diseases classified elsewhere, unspecified severity, with behavioral disturbance; D68.59 Other primary thrombophilia; M62.82 Rhabdomyolysis; N13.6 Pyonephrosis; I50.22 Chronic systolic (congestive) heart failure; G93.40 Encephalopathy, unspecified; I13.0 Hypertensive heart and chronic kidney disease with heart failure and stage 1 through stage 4 chronic kidney disease, or unspecified chronic kidney disease; G30.9 Alzheimer's disease, unspecified; N40.1 Benign prostatic hyperplasia with lower urinary tract symptoms; R33.8 Other retention of urine; Z74.09 Other reduced mobility; E88.09 Other disorders of plasma-protein metabolism, not elsewhere classified; E78.5 Hyperlipidemia, unspecified; E83.52 Hypercalcemia; Z79.01 Long term (current) use of anticoagulants; Z95.810 Presence of automatic (implantable) cardiac defibrillator; F39 Unspecified mood [affective] disorder; Z87.891 Personal history of nicotine dependence; I48.0 Paroxysmal atrial fibrillation; K80.20 Calculus of gallbladder without cholecystitis without obstruction; K57.30 Diverticulosis of large intestine without perforation or abscess without bleeding; I77.811 Abdominal aortic ectasia; J44.9 Chronic obstructive pulmonary disease, unspecified; R23.4 Changes in skin texture; R60.9 Edema, unspecified; Z68.24 Body mass index [BMI] 24.0-24.9, adult; F19.11 Other psychoactive substance abuse, in remission; F25.9 Schizoaffective disorder, unspecified; I25.5 Ischemic cardiomyopathy; Z20.822 Contact with and (suspected) exposure to COVID-19; N32.0 Bladder-neck obstruction; N28.89 Other specified disorders of kidney and ureter
CPT/HCPCS: 36415; 70030-TC; 71045; 83735; 84100; 84153; 84443; 85025; 87077; 87086; 93005; 93307; 97161; C1758; G0480